=== PATIENT | female | born 1990 | race Two or more races ===

== ENCOUNTER 2022-06-28 07:43 | Emergency (ER) | payer MEDICAID ==
[~2022-06-28] VITALS: Ht 142.2 cm; Wt 75.0 kg
[2022-06-28 08:10] VITALS: BP 119/72
== END 2022-06-28 08:27 | disposition home or self-care (01) ==
LOC: ER 07:48
DX: S00.03XA Contusion of scalp, initial encounter (principal); F17.210 Nicotine dependence, cigarettes, uncomplicated; Y08.89XA Assault by other specified means, initial encounter; Y93.89 Activity, other specified; Y92.89 Other specified places as the place of occurrence of the external cause; Y99.8 Other external cause status